=== PATIENT | female | born 1965 | race Two or more races ===

== ENCOUNTER 2023-03-31 10:32 | Emergency (ER) | payer OTHER ==
[~2023-03-31] VITALS: Ht 165.1 cm; Wt 66.7 kg
[2023-03-31] MEDS ORDERED: HUMIRA(CF)40 MG/0.1 SQ (11:11)
[2023-03-31] MEDS ORDERED: MEDI-MECLIZINE25 MG PO (13:59)
== END 2023-03-31 14:12 | disposition home or self-care (01) ==
LOC: ER 10:32
DX: R42 Dizziness and giddiness (principal)